=== PATIENT | male | born 1975 | race Asian ===

== ENCOUNTER 2016-11-26 15:05 | Inpatient (IN) | payer MEDICARE, OTHER, MEDICAID ==
[~2016-11-26] VITALS: Ht 167.6 cm; Wt 52.8 kg
[~2016-11-26 15:05] MED LIST: RISP1 PO
[2016-11-26 15:49] LABS: ANION GAP 9 mmol/L (8-16); CALCIUM, TOTAL 8.5 mg/dL (8.8-10.5); CARBON DIOXIDE 26 mmol/L (22-29); CHLORIDE 104 mmol/L (98-107); CREATININE 0.81 mg/dL (0.60-1.30); GLOMERULAR FILTR. RATE CALC > 60 mL/min (>60); POTASSIUM 3.6 mmol/L (3.5-5.1); SODIUM SERUM 139 mmol/L (136-145); UREA NITROGEN, BLOOD 8 mg/dL (7-18)
[2016-11-26 15:52] LABS: ALANINE AMINOTRANSFERASE 22 U/L (12-78); ALBUMIN 3.8 g/dL (3.4-5.0); ASPARTATE AMINOTRANSFERASE 13 U/L (15-37); BILIRUBIN,TOTAL 0.4 mg/dL (0.1-1.0); TOTAL PROTEIN, SERUM 7.3 g/dL (6.4-8.2)
[2016-11-26 15:58] LABS: BASOPHILS # (AUTO) 0.06 K/uL (0.00-0.20); BASOPHILS % (AUTO) 0.5 % (0.0-2.0); EOSINOPHILS # (AUTO) 0.08 K/uL (0.00-0.70); EOSINOPHILS % (AUTO) 0.69 % (1.0-6.0); HEMATOCRIT 36.8 % (41-53); HEMOGLOBIN 12.2 g/dL (13.5-17.5); MEAN CORPUSCULAR HEMOGLOBIN 30.6 pg (26.0-34.0); MEAN CORPUSCULAR HGB CONC 33.3 G/dL (31.0-37.0); MEAN CORPUSCULAR VOLUME 92 fL (80-100); MONOCYTES % (AUTO) 8.3 % (2.0-9.0); NEUTROPHILS # (AUTO) 8.5 K/uL (1.8-7.7); NEUTROPHILS % (AUTO) 73.5 % (40.0-70.0); PLATELET COUNT (AUTO) 163 K/uL (150-450); RED BLOOD CELL COUNT(AUTO) 3.99 MIL/uL (4.50-5.90); WHITE BLOOD COUNT (AUTO) 11.5 K/uL (4.5-11.0)
[2016-11-26] MEDS ORDERED: ZOLPIDEM TARTRATE 10 MG TABLET PO PRN (20:15)
[2016-11-27] MEDS: LORazepam 2 MG TABLET PO PRN (05:02)
[2016-11-27] MEDS: HALOPERIDOL 5 MG TABLET PO PRN (05:02)
[2016-11-27 17:21] VITALS: BP 109/66
[2016-11-27] MEDS ORDERED: INFLUENZA VIRUS VACCINE QVS 2016-17 (3YR+)/PF 60 MCG/0.5 ML SYRINGE IM ONE (19:00)
[2016-11-28 00:57] VITALS: BP 97/57
[2016-11-28] MEDS ORDERED: PNEUMOCOCCAL VACCINE POLYVALENT 0.5 ML VIAL [PPSV23] IM ONE (02:15)
[2016-11-28 08:10] VITALS: BP 114/69
[2016-11-28] MEDS ORDERED: BENZOCAINE/MENTHOL LOZENGE MM PRN (11:00)
[2016-11-28] MEDS ORDERED: BACITRACIN 28.4 GM OINTMENT TP PRN (11:00)
[2016-11-28] MEDS ORDERED: ACETAMINOPHEN 325 MG TABLET PO PRN (11:00)
[2016-11-28] MEDS ORDERED: PETROLATUM,WHITE 71 GM JELLY TP PRN (11:00)
[2016-11-28] MEDS ORDERED: GLUCAGON,HUMAN RECOMBINANT 1 MG VIAL IM PRN (11:00)
[2016-11-28] MEDS ORDERED: MAG HYDROX/AL HYDROX/SIMETH ES 30 ML SUSPENSION UDCUP PO PRN (11:00)
[2016-11-28] MEDS ORDERED: INSULIN ASPART 100 UNITS/ML SQ PRN (11:00)
[2016-11-28] MEDS ORDERED: MAGNESIUM HYDROXIDE SUSPENSION 30 ML UDCUP PO PRN (11:00)
[2016-11-28] MEDS ORDERED: ONDANSETRON HCL 4 MG TABLET PO PRN (11:00)
[2016-11-28] MEDS ORDERED: ALBUTEROL SULFATE HFA 90 MCG/PUFF 8 GM INHALER IH PRN (11:00)
[2016-11-28] MEDS ORDERED: CloNIDine HCL 0.1 MG TABLET PO PRN (11:00)
[2016-11-28] MEDS ORDERED: LOPERAMIDE HCL 2 MG CAPSULE PO PRN (11:00)
[2016-11-28 11:41] LABS: GLUCOSE,POINT OF CARE 119 MG/DL (70-110)
[2016-11-28 16:21] VITALS: BP 111/71
[2016-11-28 16:46] LABS: GLUCOSE,POINT OF CARE 90 MG/DL (70-110)
[2016-11-28 21:12] LABS: GLUCOSE,POINT OF CARE 94 MG/DL (70-110)
[2016-11-29 00:15] VITALS: BP 103/62
[2016-11-29 06:15] LABS: GLUCOSE,POINT OF CARE 100 MG/DL (70-110)
[2016-11-29 08:10] VITALS: BP 110/65
[2016-11-29 08:42] LABS: HEMOGLOBIN A1C 5.5 % (4.5-6.2)
[2016-11-29 09:23] LABS: CHOL/HDL RATIO 1.9 (4.2-7.3)
[2016-11-29 10:19] LABS: THYROID STIMULATING HORMONE 1.42 uIU/mL (0.36-3.74)
[2016-11-29 11:21] LABS: GLUCOSE,POINT OF CARE 90 MG/DL (70-110)
[2016-11-29] MEDS: LORazepam 2 MG TABLET PO PRN ×2 (11:23→17:12)
[2016-11-29 16:15] VITALS: BP 115/72
[2016-11-29] MEDS: RisperiDONE 2 MG TABLET PO SCH (16:15)
[2016-11-30 00:08] VITALS: BP 104/66
[2016-11-30] MEDS: RisperiDONE 2 MG TABLET PO SCH ×2 (08:19→16:28)
[2016-11-30 08:41] VITALS: BP 107/67
[2016-11-30 16:19] VITALS: BP 116/68
[2016-12-01 00:10] VITALS: BP 104/67
[2016-12-01 08:19] VITALS: BP 103/66
[2016-12-01] MEDS: RisperiDONE 2 MG TABLET PO SCH ×2 (09:15→17:00)
[2016-12-01] MEDS: LORazepam 2 MG TABLET PO PRN (09:20)
[2016-12-02] MEDS: CHOLECALCIFEROL (VIT D3) 1,000 UNITS TABLET PO SCH (09:00)
[2016-12-02] MEDS: RisperiDONE 2 MG TABLET PO SCH ×2 (09:00→17:00)
[2016-12-03 01:51] VITALS: BP 101/64
[2016-12-03 08:08] VITALS: BP 115/66
[2016-12-03] MEDS: CHOLECALCIFEROL (VIT D3) 1,000 UNITS TABLET PO SCH (08:48)
[2016-12-03] MEDS: RisperiDONE 2 MG TABLET PO SCH ×2 (08:48→16:44)
[2016-12-03 16:06] VITALS: BP 113/68
[2016-12-04 01:23] VITALS: BP 108/70
[2016-12-04 08:22] VITALS: BP 104/68
[2016-12-04] MEDS: RisperiDONE 2 MG TABLET PO SCH ×2 (08:51→16:34)
[2016-12-04] MEDS: CHOLECALCIFEROL (VIT D3) 1,000 UNITS TABLET PO SCH (08:52)
[2016-12-04] MEDS: LORazepam 2 MG TABLET PO PRN (08:52)
[2016-12-04 16:15] VITALS: BP 111/66
[2016-12-05 01:09] VITALS: BP 108/63
[2016-12-05 08:20] VITALS: BP 115/65
[2016-12-05] MEDS: RisperiDONE 2 MG TABLET PO SCH ×2 (08:49→16:44)
[2016-12-05] MEDS: CHOLECALCIFEROL (VIT D3) 1,000 UNITS TABLET PO SCH (08:49)
[2016-12-05] MEDS: LORazepam 2 MG TABLET PO PRN (08:50)
[2016-12-05] MEDS: NICOTINE 21 MG/24 HOUR PATCH TD SCH (12:03)
[2016-12-05 18:40] VITALS: BP 104/76
[2016-12-06 06:16] VITALS: BP 119/68
[2016-12-06] MEDS: RisperiDONE 2 MG TABLET PO SCH (08:33)
[2016-12-06] MEDS: CHOLECALCIFEROL (VIT D3) 1,000 UNITS TABLET PO SCH (08:33)
[2016-12-06] MEDS: NICOTINE 21 MG/24 HOUR PATCH TD SCH (08:33)
[2016-12-06] MEDS: LORazepam 2 MG TABLET PO PRN (08:39)
[2016-12-06 09:11] VITALS: BP 118/74
[2016-12-06] MEDS: RisperiDONE 3 MG TABLET PO SCH (16:22)
[2016-12-06 16:36] VITALS: BP 118/58
[2016-12-07 00:32] VITALS: BP 110/62
[2016-12-07 08:40] VITALS: BP 106/7
[2016-12-07] MEDS: NICOTINE 21 MG/24 HOUR PATCH TD SCH (09:01)
[2016-12-07] MEDS: RisperiDONE 3 MG TABLET PO SCH ×2 (09:01→16:04)
[2016-12-07] MEDS: CHOLECALCIFEROL (VIT D3) 1,000 UNITS TABLET PO SCH (09:01)
[2016-12-07] MEDS: LORazepam 2 MG TABLET PO PRN ×2 (09:07→16:05)
[2016-12-07 16:06] VITALS: BP 111/63
[2016-12-08 00:23] VITALS: BP 96/56
[2016-12-08] MEDS: CHOLECALCIFEROL (VIT D3) 1,000 UNITS TABLET PO SCH (08:24)
[2016-12-08] MEDS: RisperiDONE 3 MG TABLET PO SCH ×2 (08:24→16:24)
[2016-12-08] MEDS: NICOTINE 21 MG/24 HOUR PATCH TD SCH (08:25)
[2016-12-08] MEDS: LORazepam 2 MG TABLET PO PRN (08:28)
[2016-12-08 09:07] VITALS: BP 110/63
[2016-12-08 17:21] VITALS: BP 101/67
[2016-12-09 04:58] VITALS: BP 120/77
[2016-12-09 08:07] VITALS: BP 100/66
[2016-12-09] MEDS: NICOTINE 21 MG/24 HOUR PATCH TD SCH (09:00)
[2016-12-09] MEDS: CHOLECALCIFEROL (VIT D3) 1,000 UNITS TABLET PO SCH (09:33)
[2016-12-09] MEDS: RisperiDONE 3 MG TABLET PO SCH ×2 (09:33→16:16)
[2016-12-09 16:12] VITALS: BP 101/63
[2016-12-10 06:28] VITALS: BP_SYST 116; BP_SYST 135; BP_DIAS 72; BP_DIAS 88
[2016-12-10 09:18] VITALS: BP 116/75
[2016-12-10] MEDS: NICOTINE 21 MG/24 HOUR PATCH TD SCH (09:34)
[2016-12-10] MEDS: RisperiDONE 3 MG TABLET PO SCH ×2 (09:34→16:22)
[2016-12-10] MEDS: CHOLECALCIFEROL (VIT D3) 1,000 UNITS TABLET PO SCH (09:34)
[2016-12-10 16:20] VITALS: BP 102/64
[2016-12-11 00:23] VITALS: BP 106/64
[2016-12-11] MEDS: RisperiDONE 3 MG TABLET PO SCH (09:04)
[2016-12-11] MEDS: NICOTINE 21 MG/24 HOUR PATCH TD SCH (09:04)
[2016-12-11] MEDS: CHOLECALCIFEROL (VIT D3) 1,000 UNITS TABLET PO SCH (09:04)
[2016-12-11 09:16] VITALS: BP 105/61
[2016-12-11 16:02] VITALS: BP 143/89
[2016-12-11] MEDS: RisperiDONE 2 MG TABLET PO SCH (17:26)
[2016-12-12 01:57] VITALS: BP 119/66
[2016-12-12 08:21] VITALS: BP 118/76
[2016-12-12] MEDS: CHOLECALCIFEROL (VIT D3) 1,000 UNITS TABLET PO SCH (08:40)
[2016-12-12] MEDS: RisperiDONE 2 MG TABLET PO SCH ×2 (08:40→16:37)
[2016-12-12] MEDS: NICOTINE 21 MG/24 HOUR PATCH TD SCH (08:40)
[2016-12-12 16:10] VITALS: BP 114/56
[2016-12-13 04:07] VITALS: BP 103/60
[2016-12-13] MEDS: CHOLECALCIFEROL (VIT D3) 1,000 UNITS TABLET PO SCH (08:42)
[2016-12-13] MEDS: NICOTINE 21 MG/24 HOUR PATCH TD SCH (08:43)
[2016-12-13] MEDS: RisperiDONE 2 MG TABLET PO SCH ×2 (08:43→16:33)
[2016-12-13 08:53] VITALS: BP 102/68
[2016-12-13 16:10] VITALS: BP 101/63
[2016-12-14 05:30] VITALS: BP 118/76
[2016-12-14 08:46] VITALS: BP 114/54
[2016-12-14] MEDS: NICOTINE 21 MG/24 HOUR PATCH TD SCH (09:20)
[2016-12-14] MEDS: CHOLECALCIFEROL (VIT D3) 1,000 UNITS TABLET PO SCH (09:20)
[2016-12-14] MEDS: RisperiDONE 2 MG TABLET PO SCH ×2 (09:20→16:48)
[2016-12-14] MEDS: LORazepam 2 MG TABLET PO PRN (09:21)
[2016-12-14 16:11] VITALS: BP 111/70
[2016-12-15 02:56] VITALS: BP 104/75
[2016-12-15] MEDS: LORazepam 2 MG TABLET PO PRN (03:00)
[2016-12-15] MEDS: HALOPERIDOL 5 MG TABLET PO PRN (03:06)
[2016-12-15] MEDS: CHOLECALCIFEROL (VIT D3) 1,000 UNITS TABLET PO SCH (08:56)
[2016-12-15] MEDS: NICOTINE 21 MG/24 HOUR PATCH TD SCH (08:57)
[2016-12-15] MEDS: RisperiDONE 2 MG TABLET PO SCH ×2 (08:57→16:15)
[2016-12-15 09:18] VITALS: BP 104/60
[2016-12-15 16:06] VITALS: BP 102/65
[2016-12-16 06:06] VITALS: BP 100/66
[2016-12-16] MEDS: CHOLECALCIFEROL (VIT D3) 1,000 UNITS TABLET PO SCH (09:19)
[2016-12-16] MEDS: RisperiDONE 2 MG TABLET PO SCH ×2 (09:19→16:25)
[2016-12-16] MEDS: NICOTINE 21 MG/24 HOUR PATCH TD SCH (09:20)
[2016-12-16 09:26] VITALS: BP 119/67
[2016-12-16] MEDS: LORazepam 2 MG TABLET PO PRN ×2 (09:26→16:30)
[2016-12-16 16:14] VITALS: BP 117/68
[2016-12-17 04:26] VITALS: BP 114/60
[2016-12-17 08:54] VITALS: BP 116/65
[2016-12-17] MEDS: RisperiDONE 2 MG TABLET PO SCH ×2 (09:27→16:21)
[2016-12-17] MEDS: CHOLECALCIFEROL (VIT D3) 1,000 UNITS TABLET PO SCH (09:27)
[2016-12-17] MEDS: NICOTINE 21 MG/24 HOUR PATCH TD SCH (09:28)
[2016-12-17 16:00] VITALS: BP 113/69
[2016-12-18 02:55] VITALS: BP 117/63
[2016-12-18] MEDS: CHOLECALCIFEROL (VIT D3) 1,000 UNITS TABLET PO SCH (08:41)
[2016-12-18] MEDS: NICOTINE 21 MG/24 HOUR PATCH TD SCH (08:41)
[2016-12-18] MEDS: RisperiDONE 2 MG TABLET PO SCH ×2 (08:41→16:34)
[2016-12-18 09:04] VITALS: BP 122/76
[2016-12-18 16:00] VITALS: BP 109/60
[2016-12-19 00:46] VITALS: BP 110/62
[2016-12-19 08:02] LABS: BASOPHILS # (AUTO) 0.06 K/uL (0.00-0.20); BASOPHILS % (AUTO) 0.9 % (0.0-2.0); EOSINOPHILS # (AUTO) 0.15 K/uL (0.00-0.70); EOSINOPHILS % (AUTO) 1.95 % (1.0-6.0); HEMATOCRIT 44.5 % (41-53); HEMOGLOBIN 14.6 g/dL (13.5-17.5); LYMPHOCYTES # (AUTO) 2.2 K/uL (1.0-4.8); LYMPHOCYTES % (AUTO) 28.9 % (22.0-44.0); MEAN CORPUSCULAR HGB CONC 32.9 G/dL (31.0-37.0); MEAN CORPUSCULAR VOLUME 94 fL (80-100); MONOCYTES # (AUTO) 0.4 K/uL (0.1-1.0); MONOCYTES % (AUTO) 5.3 % (2.0-9.0); NEUTROPHILS # (AUTO) 4.8 K/uL (1.8-7.7); PLATELET COUNT (AUTO) 270 K/uL (150-450); RED BLOOD CELL COUNT(AUTO) 4.73 MIL/uL (4.50-5.90); RED CELL DISTRIBUTION WIDTH 13.3 % (11.5-14.5); WHITE BLOOD COUNT (AUTO) 7.6 K/uL (4.5-11.0)
[2016-12-19 08:16] VITALS: BP 101/60
[2016-12-19 08:39] LABS: ALANINE AMINOTRANSFERASE 19 U/L (12-78); ALBUMIN 3.5 g/dL (3.4-5.0); ANION GAP 9 mmol/L (8-16); ASPARTATE AMINOTRANSFERASE 13 U/L (15-37); BILIRUBIN,TOTAL 0.5 mg/dL (0.1-1.0); CALCIUM, TOTAL 8.7 mg/dL (8.8-10.5); CARBON DIOXIDE 27 mmol/L (22-29); CHLORIDE 105 mmol/L (98-107); CREATININE 0.82 mg/dL (0.60-1.30); GLOMERULAR FILTR. RATE CALC > 60 mL/min (>60); PHOSPHORUS 3.7 mg/dL (2.5-4.9); POTASSIUM 4.4 mmol/L (3.5-5.1); SODIUM SERUM 141 mmol/L (136-145); TOTAL PROTEIN, SERUM 7.1 g/dL (6.4-8.2); UREA NITROGEN, BLOOD 19 mg/dL (7-18)
[2016-12-19] MEDS: RisperiDONE 2 MG TABLET PO SCH ×2 (10:21→16:44)
[2016-12-19] MEDS: CHOLECALCIFEROL (VIT D3) 1,000 UNITS TABLET PO SCH (10:21)
[2016-12-19] MEDS: MULTIVITAMINS WITH MINERALS, THERAPEUTIC TABLET PO SCH (10:21)
[2016-12-19] MEDS: NICOTINE 21 MG/24 HOUR PATCH TD SCH (10:22)
[2016-12-19 16:03] VITALS: BP 106/77
[2016-12-20 00:45] VITALS: BP 110/71
[2016-12-20] MEDS: CHOLECALCIFEROL (VIT D3) 1,000 UNITS TABLET PO SCH (08:36)
[2016-12-20] MEDS: MULTIVITAMINS WITH MINERALS, THERAPEUTIC TABLET PO SCH (08:36)
[2016-12-20] MEDS: RisperiDONE 2 MG TABLET PO SCH ×2 (08:37→16:28)
[2016-12-20] MEDS: NICOTINE 21 MG/24 HOUR PATCH TD SCH (08:38)
[2016-12-20 08:57] VITALS: BP 114/66
[2016-12-20 16:04] VITALS: BP 102/62
[2016-12-21 01:41] VITALS: BP 123/89
[2016-12-21 08:09] VITALS: BP 100/61
[2016-12-21] MEDS: MULTIVITAMINS WITH MINERALS, THERAPEUTIC TABLET PO SCH (09:39)
[2016-12-21] MEDS: NICOTINE 21 MG/24 HOUR PATCH TD SCH (09:39)
[2016-12-21] MEDS: CHOLECALCIFEROL (VIT D3) 1,000 UNITS TABLET PO SCH (09:39)
[2016-12-21] MEDS: RisperiDONE 2 MG TABLET PO SCH ×2 (09:39→16:33)
[2016-12-21 16:41] VITALS: BP 95/62
[2016-12-22] VITALS (10 sets, daily range): BP systolic 99–123; BP diastolic 61–73
[2016-12-22] MEDS: RisperiDONE 2 MG TABLET PO SCH ×2 (09:17→17:00)
[2016-12-22] MEDS: MULTIVITAMINS WITH MINERALS, THERAPEUTIC TABLET PO SCH (09:17)
[2016-12-22] MEDS: NICOTINE 21 MG/24 HOUR PATCH TD SCH (09:17)
[2016-12-22] MEDS: CHOLECALCIFEROL (VIT D3) 1,000 UNITS TABLET PO SCH (09:17)
[2016-12-22 11:46] LABS: GLUCOSE,POINT OF CARE 95 MG/DL (70-110)
[2016-12-22] MEDS: IBUPROFEN 600 MG TABLET PO PRN ×2 (12:40→20:01)
[2016-12-23] VITALS (11 sets, daily range): BP systolic 100–119; BP diastolic 64–77
[2016-12-23] MEDS: IBUPROFEN 600 MG TABLET PO PRN (04:08)
[2016-12-23] MEDS: RisperiDONE 2 MG TABLET PO SCH ×2 (08:22→16:10)
[2016-12-23] MEDS: CHOLECALCIFEROL (VIT D3) 1,000 UNITS TABLET PO SCH (08:22)
[2016-12-23] MEDS: NICOTINE 21 MG/24 HOUR PATCH TD SCH (08:22)
[2016-12-23] MEDS: MULTIVITAMINS WITH MINERALS, THERAPEUTIC TABLET PO SCH (08:22)
[2016-12-24 00:15] VITALS: BP 107/62
[2016-12-24] MEDS: RisperiDONE 2 MG TABLET PO SCH ×2 (08:43→16:36)
[2016-12-24] MEDS: CHOLECALCIFEROL (VIT D3) 1,000 UNITS TABLET PO SCH (08:43)
[2016-12-24] MEDS: NICOTINE 21 MG/24 HOUR PATCH TD SCH (08:43)
[2016-12-24] MEDS: MULTIVITAMINS WITH MINERALS, THERAPEUTIC TABLET PO SCH (08:44)
[2016-12-24 09:02] VITALS: BP 107/67
[2016-12-24 16:10] VITALS: BP 102/60
[2016-12-25 01:56] VITALS: BP 109/63
[2016-12-25] MEDS: CHOLECALCIFEROL (VIT D3) 1,000 UNITS TABLET PO SCH (08:37)
[2016-12-25] MEDS: NICOTINE 21 MG/24 HOUR PATCH TD SCH (08:38)
[2016-12-25] MEDS: MULTIVITAMINS WITH MINERALS, THERAPEUTIC TABLET PO SCH (08:38)
[2016-12-25] MEDS: RisperiDONE 2 MG TABLET PO SCH ×2 (08:38→16:38)
[2016-12-25 09:20] VITALS: BP 101/58
[2016-12-25 16:26] VITALS: BP 124/72
[2016-12-26 01:07] VITALS: BP 101/62
[2016-12-26 08:09] VITALS: BP 110/63
[2016-12-26] MEDS: MULTIVITAMINS WITH MINERALS, THERAPEUTIC TABLET PO SCH (09:20)
[2016-12-26] MEDS: NICOTINE 21 MG/24 HOUR PATCH TD SCH (09:20)
[2016-12-26] MEDS: CHOLECALCIFEROL (VIT D3) 1,000 UNITS TABLET PO SCH (09:21)
[2016-12-26] MEDS: RisperiDONE 2 MG TABLET PO SCH ×2 (09:21→16:28)
[2016-12-26 16:08] VITALS: BP 103/63
[2016-12-27 00:06] VITALS: BP 104/66
[2016-12-27 08:31] VITALS: BP 101/69
[2016-12-27] MEDS: CHOLECALCIFEROL (VIT D3) 1,000 UNITS TABLET PO SCH (08:49)
[2016-12-27] MEDS: NICOTINE 21 MG/24 HOUR PATCH TD SCH (08:49)
[2016-12-27] MEDS: RisperiDONE 2 MG TABLET PO SCH ×2 (08:50→16:36)
[2016-12-27] MEDS: MULTIVITAMINS WITH MINERALS, THERAPEUTIC TABLET PO SCH (08:58)
[2016-12-27 16:09] VITALS: BP 106/67
[2016-12-27] MEDS: DIVALPROEX SODIUM 500 MG ER TABLET PO SCH (16:36)
[2016-12-28 06:17] VITALS: BP 100/69
[2016-12-28 08:08] VITALS: BP 104/64
[2016-12-28] MEDS: NICOTINE 21 MG/24 HOUR PATCH TD SCH ×2 (09:00→09:21)
[2016-12-28] MEDS: RisperiDONE 2 MG TABLET PO SCH ×2 (09:19→16:50)
[2016-12-28] MEDS: CHOLECALCIFEROL (VIT D3) 1,000 UNITS TABLET PO SCH (09:20)
[2016-12-28] MEDS: MULTIVITAMINS WITH MINERALS, THERAPEUTIC TABLET PO SCH (09:20)
[2016-12-28] MEDS: DIVALPROEX SODIUM 500 MG ER TABLET PO SCH ×2 (09:20→16:50)
[2016-12-28] MEDS ORDERED: PALIPERIDONE PALMITATE 234 MG/1.5 ML SYRINGE IM ONE (12:45)
[2016-12-28 16:21] VITALS: BP 102/69
[2016-12-29 06:00] VITALS: BP 107/64
[2016-12-29 08:07] VITALS: BP 90/61
[2016-12-29] MEDS: RisperiDONE 2 MG TABLET PO SCH ×2 (08:29→16:32)
[2016-12-29] MEDS: NICOTINE 21 MG/24 HOUR PATCH TD SCH (08:29)
[2016-12-29] MEDS: DIVALPROEX SODIUM 500 MG ER TABLET PO SCH ×2 (08:29→16:31)
[2016-12-29] MEDS: MULTIVITAMINS WITH MINERALS, THERAPEUTIC TABLET PO SCH (08:29)
[2016-12-29] MEDS: CHOLECALCIFEROL (VIT D3) 1,000 UNITS TABLET PO SCH (08:29)
[2016-12-29 16:07] VITALS: BP 102/60
[2016-12-30 05:51] VITALS: BP 107/67
[2016-12-30 08:36] VITALS: BP 106/62
[2016-12-30] MEDS: CHOLECALCIFEROL (VIT D3) 1,000 UNITS TABLET PO SCH (09:02)
[2016-12-30] MEDS: RisperiDONE 2 MG TABLET PO SCH ×2 (09:02→16:15)
[2016-12-30] MEDS: MULTIVITAMINS WITH MINERALS, THERAPEUTIC TABLET PO SCH (09:02)
[2016-12-30] MEDS: DIVALPROEX SODIUM 500 MG ER TABLET PO SCH ×2 (09:02→16:15)
[2016-12-30] MEDS: NICOTINE 21 MG/24 HOUR PATCH TD SCH (09:03)
[2016-12-30 16:15] VITALS: BP 98/60
[2016-12-31 00:59] VITALS: BP 102/64
[2016-12-31 08:50] VITALS: BP 118/71
[2016-12-31] MEDS: DIVALPROEX SODIUM 500 MG ER TABLET PO SCH ×2 (09:29→16:14)
[2016-12-31] MEDS: NICOTINE 21 MG/24 HOUR PATCH TD SCH (09:29)
[2016-12-31] MEDS: RisperiDONE 2 MG TABLET PO SCH ×2 (09:29→16:14)
[2016-12-31] MEDS: CHOLECALCIFEROL (VIT D3) 1,000 UNITS TABLET PO SCH (09:29)
[2016-12-31] MEDS: MULTIVITAMINS WITH MINERALS, THERAPEUTIC TABLET PO SCH (09:30)
[2016-12-31 16:14] VITALS: BP 118/76
[2017-01-01 05:49] VITALS: BP 101/61
[2017-01-01 08:09] VITALS: BP 109/68
[2017-01-01] MEDS ORDERED: PALIPERIDONE PALMITATE 156 MG/ML SYRINGE IM ONE (09:00)
[2017-01-01] MEDS: MULTIVITAMINS WITH MINERALS, THERAPEUTIC TABLET PO SCH (09:07)
[2017-01-01] MEDS: CHOLECALCIFEROL (VIT D3) 1,000 UNITS TABLET PO SCH (09:07)
[2017-01-01] MEDS: DIVALPROEX SODIUM 500 MG ER TABLET PO SCH ×2 (09:07→17:30)
[2017-01-01] MEDS: NICOTINE 21 MG/24 HOUR PATCH TD SCH (09:08)
[2017-01-01] MEDS: RisperiDONE 2 MG TABLET PO SCH ×2 (09:08→17:30)
[2017-01-01 16:06] VITALS: BP 103/63
[2017-01-02 06:29] VITALS: BP 108/69
[2017-01-02 08:14] VITALS: BP 103/53
[2017-01-02] MEDS: NICOTINE 21 MG/24 HOUR PATCH TD SCH (09:00)
[2017-01-02] MEDS: CHOLECALCIFEROL (VIT D3) 1,000 UNITS TABLET PO SCH (09:09)
[2017-01-02] MEDS: DIVALPROEX SODIUM 500 MG ER TABLET PO SCH ×2 (09:09→16:37)
[2017-01-02] MEDS: MULTIVITAMINS WITH MINERALS, THERAPEUTIC TABLET PO SCH (09:09)
[2017-01-02] MEDS: RisperiDONE 2 MG TABLET PO SCH (09:11)
[2017-01-02 16:10] VITALS: BP 106/67
[2017-01-03 00:09] VITALS: BP 104/62
[2017-01-03 01:13] VITALS: BP 104/62
[2017-01-03 08:20] VITALS: BP 102/66
[2017-01-03] MEDS: MULTIVITAMINS WITH MINERALS, THERAPEUTIC TABLET PO SCH (08:25)
[2017-01-03] MEDS: CHOLECALCIFEROL (VIT D3) 1,000 UNITS TABLET PO SCH (08:25)
[2017-01-03] MEDS: DIVALPROEX SODIUM 500 MG ER TABLET PO SCH ×2 (08:25→16:21)
[2017-01-03] MEDS: NICOTINE 21 MG/24 HOUR PATCH TD SCH (08:27)
[2017-01-03 16:03] VITALS: BP 101/63
[2017-01-04 00:43] VITALS: BP 101/69
[2017-01-04 08:45] VITALS: BP 99/66
[2017-01-04] MEDS: NICOTINE 21 MG/24 HOUR PATCH TD SCH (09:47)
[2017-01-04] MEDS: MULTIVITAMINS WITH MINERALS, THERAPEUTIC TABLET PO SCH (09:48)
[2017-01-04] MEDS: DIVALPROEX SODIUM 500 MG ER TABLET PO SCH ×2 (09:48→16:45)
[2017-01-04] MEDS: CHOLECALCIFEROL (VIT D3) 1,000 UNITS TABLET PO SCH (09:48)
[2017-01-04 16:12] VITALS: BP 114/71
[2017-01-05 00:09] VITALS: BP 102/66
[2017-01-05 08:32] VITALS: BP 104/63
[2017-01-05] MEDS: MULTIVITAMINS WITH MINERALS, THERAPEUTIC TABLET PO SCH (08:44)
[2017-01-05] MEDS: NICOTINE 21 MG/24 HOUR PATCH TD SCH (08:44)
[2017-01-05] MEDS: CHOLECALCIFEROL (VIT D3) 1,000 UNITS TABLET PO SCH (08:44)
[2017-01-05] MEDS: DIVALPROEX SODIUM 500 MG ER TABLET PO SCH (08:44)
[2017-01-05] MEDS ORDERED: DIVA500T52 PO (10:54)
[2017-01-05] MEDS ORDERED: PALI234D IM (10:54)
[2017-01-05] MEDS ORDERED: VITAD1000 PO (10:57)
[2017-01-05] MEDS ORDERED: MULT-1203 PO (10:57)
== END 2017-01-05 13:20 | disposition home or self-care (01) | DRG 885 ==
LOC: EMS 15:07 → B3A 11-27 12:19 → B2S 11-27 16:07 → B2X 12-03 18:00
DX: F20.0 Paranoid schizophrenia (principal); F33.2 Major depressive disorder, recurrent severe without psychotic features; S05.91XA Unspecified injury of right eye and orbit, initial encounter; Z68.1 Body mass index [BMI] 19.9 or less, adult; J44.9 Chronic obstructive pulmonary disease, unspecified; R73.9 Hyperglycemia, unspecified; E83.51 Hypocalcemia; I95.9 Hypotension, unspecified; D72.829 Elevated white blood cell count, unspecified; F17.210 Nicotine dependence, cigarettes, uncomplicated; F10.21 Alcohol dependence, in remission; E86.0 Dehydration; F15.10 Other stimulant abuse, uncomplicated; F41.9 Anxiety disorder, unspecified; R42 Dizziness and giddiness; F29 Unspecified psychosis not due to a substance or known physiological condition; R63.6 Underweight; Z79.899 Other long term (current) drug therapy; Z59.0 Homelessness; Z71.6 Tobacco abuse counseling; X58.XXXA Exposure to other specified factors, initial encounter; Z91.14 Patient's other noncompliance with medication regimen; Y93.89 Activity, other specified; Y92.89 Other specified places as the place of occurrence of the external cause; Y99.8 Other external cause status; Z28.21 Immunization not carried out because of patient refusal
CPT/HCPCS: 82306; 82962; 83036; 83735; 84100; 84443; 90471; 99285; A0429; G0480; Q0162

== ENCOUNTER 2016-12-22 13:48 | Emergency (ER) | payer OTHER, MEDICARE ==
[~2016-12-22] VITALS: Ht 172.7 cm; Wt 68.2 kg
[2016-12-22 15:22] LABS: BASOPHILS % (AUTO) 0.4 % (0.0-2.0); EOSINOPHILS % (AUTO) 0.3 % (1.0-6.0); HEMATOCRIT 46.5 % (41-53); HEMOGLOBIN 15.2 g/dL (13.5-17.5); LYMPHOCYTES # (AUTO) 1.4 K/uL (1.0-4.8); LYMPHOCYTES % (AUTO) 11.5 % (22.0-44.0); MEAN CORPUSCULAR HEMOGLOBIN 30.8 pg (26.0-34.0); MEAN CORPUSCULAR HGB CONC 32.8 G/dL (31.0-37.0); MEAN CORPUSCULAR VOLUME 94 fL (80-100); MONOCYTES # (AUTO) 0.4 K/uL (0.1-1.0); MONOCYTES % (AUTO) 3.2 % (2.0-9.0); NEUTROPHILS # (AUTO) 10.5 K/uL (1.8-7.7); NEUTROPHILS % (AUTO) 84.6 % (40.0-70.0); PLATELET COUNT (AUTO) 246 K/uL (150-450); RED BLOOD CELL COUNT(AUTO) 4.95 MIL/uL (4.50-5.90); RED CELL DISTRIBUTION WIDTH 13.2 % (11.5-14.5); WHITE BLOOD COUNT (AUTO) 12.4 K/uL (4.5-11.0)
[2016-12-22 15:35] LABS: PROTHROMBIN TIME 10.7 SEC (9.4-11.6)
[2016-12-22 15:48] LABS: ANION GAP 9 mmol/L (8-16); CARBON DIOXIDE 27 mmol/L (22-29); CHLORIDE 103 mmol/L (98-107); CREATININE 0.81 mg/dL (0.60-1.30); GLOMERULAR FILTR. RATE CALC > 60 mL/min (>60); POTASSIUM 3.6 mmol/L (3.5-5.1); SODIUM SERUM 139 mmol/L (136-145); UREA NITROGEN, BLOOD 16 mg/dL (7-18)
[2016-12-22 15:56] LABS: AMMONIA 20 umol/L (11-32)
[2016-12-22 15:59] LABS: TROPONIN I < 0.02 ng/mL (0.00-0.05)
[2016-12-22 16:12] LABS: ALANINE AMINOTRANSFERASE 26 U/L (12-78); ALBUMIN 3.8 g/dL (3.4-5.0); ASPARTATE AMINOTRANSFERASE 21 U/L (15-37); BILIRUBIN,TOTAL 0.7 mg/dL (0.1-1.0); CREATINE KINASE MB 0.6 ng/mL (0-5); CREATINE KINASE, TOTAL 80 U/L (39-308); TOTAL PROTEIN, SERUM 7.5 g/dL (6.4-8.2)
[2016-12-22 17:38] VITALS: BP 115/71
[2016-12-22 18:07] LABS: APPEARANCE,URINE CLEAR (CLEAR); GLUCOSE, URINE (UA) NEGATIVE (NEGATIVE); KETONES,URINE NEGATIVE (NEGATIVE); LEUKOCYTE ESTERASE ,URINE NEGATIVE (NEGATIVE); OCCULT BLOOD,URINE NEGATIVE (NEGATIVE); PROTEIN,URINE NEGATIVE (NEGATIVE)
[2016-12-22 18:12] LABS: ADD UA MICROSCOPIC NO
[2016-12-22] MEDS ORDERED: TraMADol HCL 50 MG TABLET PO ONE (18:30)
== END 2016-12-22 18:48 | disposition home or self-care (01) ==
LOC: EEVIPCON 13:55 → EMS 13:55
DX: S09.90XA Unspecified injury of head, initial encounter (principal); F17.210 Nicotine dependence, cigarettes, uncomplicated; F32.9 Major depressive disorder, single episode, unspecified; F20.9 Schizophrenia, unspecified; W01.0XXA Fall on same level from slipping, tripping and stumbling without subsequent striking against object, initial encounter; Y93.89 Activity, other specified; Y92.9 Unspecified place or not applicable; Y99.9 Unspecified external cause status
CPT/HCPCS: 70450; 70486; 87040; 93005; 99285

== ENCOUNTER 2017-09-13 09:12 | Inpatient (IN) | payer MEDICARE, MEDICAID ==
[~2017-09-13] VITALS: Ht 170.2 cm; Wt 59.1 kg
[~2017-09-13 09:12] MED LIST changes: +DIVA500T52 PO; +MULT-1203 PO; +PALI234D IM; -RISP1 PO; +VITAD1000 PO
[2017-09-13 10:19] LABS: BASOPHILS # (AUTO) 0.07 K/uL (0.00-0.20); BASOPHILS % (AUTO) 0.4 % (0.0-2.0); EOSINOPHILS % (AUTO) 0 % (1.0-6.0); HEMATOCRIT 48.1 % (41-53); HEMOGLOBIN 15.8 g/dL (13.5-17.5); LYMPHOCYTES # (AUTO) 1.1 K/uL (1.0-4.8); LYMPHOCYTES % (AUTO) 6.4 % (22.0-44.0); MEAN CORPUSCULAR HEMOGLOBIN 31.6 pg (26.0-34.0); MEAN CORPUSCULAR HGB CONC 32.8 G/dL (31.0-37.0); MEAN CORPUSCULAR VOLUME 96 fL (80-100); MONOCYTES # (AUTO) 1.2 K/uL (0.1-1.0); MONOCYTES % (AUTO) 6.6 % (2.0-9.0); NEUTROPHILS # (AUTO) 15.4 K/uL (1.8-7.7); PLATELET COUNT (AUTO) 245 K/uL (150-450); RED CELL DISTRIBUTION WIDTH 13.9 % (11.5-14.5); WHITE BLOOD COUNT (AUTO) 17.8 K/uL (4.5-11.0)
[2017-09-13 10:22] LABS: NEUTROPHILS % (AUTO) 86.6 % (40.0-70.0)
[2017-09-13 10:35] LABS: ANION GAP 18 mmol/L (8-16); CALCIUM, TOTAL 8.9 mg/dL (8.8-10.5); CARBON DIOXIDE 21 mmol/L (22-29); CHLORIDE 105 mmol/L (98-107); CREATININE 1.39 mg/dL (0.60-1.30); GLOMERULAR FILTR. RATE CALC 56 mL/min (>60); POTASSIUM 3.8 mmol/L (3.5-5.1); SODIUM SERUM 144 mmol/L (136-145); UREA NITROGEN, BLOOD 12 mg/dL (7-18)
[2017-09-13 10:41] LABS: ALANINE AMINOTRANSFERASE 35 U/L (12-78); ALBUMIN 4.1 g/dL (3.4-5.0); ASPARTATE AMINOTRANSFERASE 32 U/L (15-37); BILIRUBIN,TOTAL 0.4 mg/dL (0.1-1.0); TOTAL PROTEIN, SERUM 8.3 g/dL (6.4-8.2)
[2017-09-13] MEDS ORDERED: HALOPERIDOL 5 MG TABLET PO ONE (10:45)
[2017-09-13] MEDS ORDERED: LORazepam 2 MG TABLET PO ONE (10:45)
[2017-09-13 10:53] LABS: VALPROIC ACID 17 mcg/mL (50-100)
[2017-09-13] MEDS ORDERED: HALOPERIDOL 5 MG TABLET PO PRN (11:00)
[2017-09-13] MEDS ORDERED: LORazepam 2 MG TABLET PO PRN (11:00)
[2017-09-13] MEDS ORDERED: ZOLPIDEM TARTRATE 10 MG TABLET PO PRN (11:00)
[2017-09-13 12:05] LABS: CHOL/HDL RATIO 2.1 (4.2-7.3); THYROID STIMULATING HORMONE 1.17 uIU/mL (0.36-3.74)
[2017-09-13] MEDS ORDERED: INFLUENZA VIRUS VACCINE QVS 2017-18 (3YR+)/PF 60 MCG/0.5 ML SYRINGE IM ONE (14:00)
[2017-09-13] MEDS ORDERED: PNEUMOCOCCAL VACCINE POLYVALENT 0.5 ML VIAL [PPSV23] IM ONE (14:00)
[2017-09-13 14:01] VITALS: BP 119/67
[2017-09-13 16:17] VITALS: BP 107/68
[2017-09-13] MEDS: DIVALPROEX SODIUM 500 MG ER TABLET PO SCH (16:48)
[2017-09-13] MEDS: PALIPERIDONE 3 MG ER TABLET PO SCH (20:42)
[2017-09-14 02:25] VITALS: BP 99/68
[2017-09-14] MEDS ORDERED: ACETAMINOPHEN 325 MG TABLET PO PRN (08:15)
[2017-09-14] MEDS ORDERED: PETROLATUM,WHITE 71 GM JELLY TP PRN (08:15)
[2017-09-14] MEDS ORDERED: ALBUTEROL SULFATE HFA 90 MCG/PUFF 8 GM INHALER IH PRN (08:15)
[2017-09-14] MEDS ORDERED: BACITRACIN 28.4 GM OINTMENT TP PRN (08:15)
[2017-09-14] MEDS ORDERED: IBUPROFEN 600 MG TABLET PO PRN (08:15)
[2017-09-14] MEDS ORDERED: MAGNESIUM HYDROXIDE SUSPENSION 30 ML UDCUP PO PRN (08:15)
[2017-09-14] MEDS ORDERED: BENZOCAINE/MENTHOL LOZENGE MM PRN (08:15)
[2017-09-14] MEDS ORDERED: LOPERAMIDE HCL 2 MG CAPSULE PO PRN (08:15)
[2017-09-14] MEDS ORDERED: MAG HYDROX/AL HYDROX/SIMETH ES 30 ML SUSPENSION UDCUP PO PRN (08:15)
[2017-09-14] MEDS ORDERED: CloNIDine HCL 0.1 MG TABLET PO PRN (08:15)
[2017-09-14] MEDS ORDERED: ONDANSETRON HCL 4 MG TABLET PO PRN (08:15)
[2017-09-14 08:50] VITALS: BP 105/66
[2017-09-14] MEDS: DIVALPROEX SODIUM 500 MG ER TABLET PO SCH ×2 (08:52→16:34)
[2017-09-14] MEDS: PALIPERIDONE 3 MG ER TABLET PO SCH ×2 (08:52→20:44)
[2017-09-14 16:18] VITALS: BP 112/62
[2017-09-15 01:41] VITALS: BP 100/63
[2017-09-15 07:52] LABS: EOSINOPHILS % (AUTO) 2.3 % (1.0-6.0); HEMATOCRIT 41.3 % (41-53); HEMOGLOBIN 14.2 g/dL (13.5-17.5); LYMPHOCYTES # (AUTO) 2.3 K/uL (1.0-4.8); LYMPHOCYTES % (AUTO) 34.3 % (22.0-44.0); MEAN CORPUSCULAR HEMOGLOBIN 32.3 pg (26.0-34.0); MEAN CORPUSCULAR HGB CONC 34.4 G/dL (31.0-37.0); MEAN CORPUSCULAR VOLUME 94 fL (80-100); MONOCYTES # (AUTO) 0.5 K/uL (0.1-1.0); MONOCYTES % (AUTO) 7.9 % (2.0-9.0); NEUTROPHILS # (AUTO) 3.6 K/uL (1.8-7.7); NEUTROPHILS % (AUTO) 54.5 % (40.0-70.0); PLATELET COUNT (AUTO) 224 K/uL (150-450); RED CELL DISTRIBUTION WIDTH 13.5 % (11.5-14.5); WHITE BLOOD COUNT (AUTO) 6.7 K/uL (4.5-11.0)
[2017-09-15] MEDS: DIVALPROEX SODIUM 500 MG ER TABLET PO SCH ×2 (08:49→16:24)
[2017-09-15] MEDS: PALIPERIDONE 3 MG ER TABLET PO SCH ×2 (08:49→20:32)
[2017-09-15 09:00] VITALS: BP 96/70
[2017-09-15 09:22] LABS: ANION GAP 10 mmol/L (8-16); CALCIUM, TOTAL 8.4 mg/dL (8.8-10.5); CARBON DIOXIDE 25 mmol/L (22-29); CHLORIDE 106 mmol/L (98-107); CREATININE 0.81 mg/dL (0.60-1.30); GLOMERULAR FILTR. RATE CALC > 60 mL/min (>60); POTASSIUM 4.2 mmol/L (3.5-5.1); SODIUM SERUM 141 mmol/L (136-145); UREA NITROGEN, BLOOD 14 mg/dL (7-18)
[2017-09-15 16:13] VITALS: BP 90/65
[2017-09-16 06:27] VITALS: BP 101/63
[2017-09-16 08:10] VITALS: BP 100/65
[2017-09-16] MEDS: PALIPERIDONE 3 MG ER TABLET PO SCH ×2 (08:31→20:15)
[2017-09-16] MEDS: DIVALPROEX SODIUM 500 MG ER TABLET PO SCH ×2 (08:31→16:07)
[2017-09-16 16:15] VITALS: BP 106/73
[2017-09-17 06:10] VITALS: BP 104/62
[2017-09-17 08:31] VITALS: BP 98/60
[2017-09-17] MEDS: PALIPERIDONE 3 MG ER TABLET PO SCH ×2 (08:53→21:06)
[2017-09-17] MEDS: DIVALPROEX SODIUM 500 MG ER TABLET PO SCH ×2 (08:53→16:37)
[2017-09-17 16:09] VITALS: BP 92/68
[2017-09-18 05:43] VITALS: BP 101/68
[2017-09-18 08:16] VITALS: BP 100/63
[2017-09-18] MEDS: DIVALPROEX SODIUM 500 MG ER TABLET PO SCH ×2 (09:00→17:13)
[2017-09-18] MEDS: PALIPERIDONE 3 MG ER TABLET PO SCH ×2 (09:00→20:19)
[2017-09-18 16:12] VITALS: BP 96/61
[2017-09-19 06:14] VITALS: BP 100/61
[2017-09-19 08:10] VITALS: BP 101/59
[2017-09-19] MEDS: DIVALPROEX SODIUM 500 MG ER TABLET PO SCH ×2 (08:51→16:47)
[2017-09-19] MEDS: PALIPERIDONE 3 MG ER TABLET PO SCH ×2 (08:51→20:31)
[2017-09-19 17:10] VITALS: BP 113/66
[2017-09-20 05:26] VITALS: BP 100/65
[2017-09-20 08:15] VITALS: BP 105/65
[2017-09-20] MEDS: DIVALPROEX SODIUM 500 MG ER TABLET PO SCH (08:36)
[2017-09-20] MEDS: PALIPERIDONE 3 MG ER TABLET PO SCH (08:36)
[2017-09-20] MEDS ORDERED: PALI3 PO (09:13)
== END 2017-09-20 13:25 | disposition home or self-care (01) | DRG 885 ==
LOC: EMS 09:15 → B2X 11:18
PROVIDERS: ATTEND Psychiatry & Neurology Child & Adolescent Psychiatry
DX: F20.0 Paranoid schizophrenia (principal); N17.9 Acute kidney failure, unspecified; Z91.14 Patient's other noncompliance with medication regimen; Z59.0 Homelessness; D72.829 Elevated white blood cell count, unspecified; Z28.21 Immunization not carried out because of patient refusal; F17.200 Nicotine dependence, unspecified, uncomplicated; F32.9 Major depressive disorder, single episode, unspecified; J44.9 Chronic obstructive pulmonary disease, unspecified; F15.90 Other stimulant use, unspecified, uncomplicated; Z71.6 Tobacco abuse counseling; Z56.0 Unemployment, unspecified; F10.21 Alcohol dependence, in remission; Z71.51 Drug abuse counseling and surveillance of drug abuser
CPT/HCPCS: 84439; 84443; 99285; G0480

== ENCOUNTER 2019-03-20 13:57 | Inpatient (IN) | payer MEDICARE, MEDICAID ==
[~2019-03-20] VITALS: Ht 170.2 cm; Wt 53.6 kg
[~2019-03-20 13:57] MED LIST changes: -MULT-1203 PO; -PALI234D IM; +PALI3 PO; -VITAD1000 PO
[2019-03-20 14:23] VITALS: BP 135/85
[2019-03-20] MEDS ORDERED: LORazepam 2 MG TABLET PO PRN (14:30)
[2019-03-20] MEDS ORDERED: HALOPERIDOL 5 MG TABLET PO PRN (14:30)
[2019-03-20] MEDS ORDERED: ZOLPIDEM TARTRATE 10 MG TABLET PO PRN (14:30)
[2019-03-20 15:59] VITALS: BP 132/87
[2019-03-20 16:00] VITALS: BP 132/87
[2019-03-20] MEDS ORDERED: PNEUMOCOCCAL VACCINE POLYVALENT 0.5 ML VIAL [PPSV23] IM ONE (16:15)
[2019-03-20] MEDS: PALIPERIDONE 3 MG ER TABLET PO SCH (20:49)
[2019-03-21 05:24] VITALS: BP 100/61
[2019-03-21 08:29] VITALS: BP 98/60
[2019-03-21 09:05] LABS: AMPHET/METH SCREEN,URINE NEGATIVE (NEGATIVE); BARBITURATE SCREEN, URINE NEGATIVE (NEGATIVE); BENZODIAZEPINES SCREEN,URINE NEGATIVE (NEGATIVE); CANNABINOID SCREEN,URINE NEGATIVE (NEGATIVE); COCAINE SCREEN,URINE NEGATIVE (NEGATIVE); METHADONE SCREEN, URINE NEGATIVE (NEGATIVE); OPIATE SCREEN,URINE NEGATIVE (NEGATIVE)
[2019-03-21 09:07] LABS: PHENCYCLIDINE SCREEN,URINE NEGATIVE (NEGATIVE)
[2019-03-21 10:15] LABS: APPEARANCE,URINE TURBID (CLEAR); GLUCOSE, URINE (UA) NEGATIVE (NEGATIVE); KETONES,URINE 40 mg/dL (NEGATIVE); LEUKOCYTE ESTERASE ,URINE NEGATIVE (NEGATIVE); NITRATE,URINE NEGATIVE (NEGATIVE); OCCULT BLOOD,URINE NEGATIVE (NEGATIVE); PROTEIN,URINE TRACE (NEGATIVE)
[2019-03-21 10:25] LABS: BILIRUBIN,URINE PRELIM. POSITIVE (NEGATIVE)
[2019-03-21 10:42] LABS: AMORPHOUS SEDIMENT,UR Moderate /LPF (None Seen); BACTERIA,URINE Moderate /HPF (None Seen); SQUAMOUS EPITHELIAL CELL,UR Few /LPF (None Seen); WBC,URINE 0-2 /HPF (0-5)
[2019-03-21] MEDS: DIVALPROEX SODIUM 500 MG ER TABLET PO SCH (17:06)
[2019-03-21 18:15] VITALS: BP 96/60
[2019-03-21] MEDS ORDERED: IBUPROFEN 600 MG TABLET PO PRN (19:45)
[2019-03-21] MEDS ORDERED: ALBUTEROL SULFATE HFA 90 MCG/PUFF 8 GM INHALER IH PRN (19:45)
[2019-03-21] MEDS ORDERED: ACETAMINOPHEN 325 MG TABLET PO PRN (19:45)
[2019-03-21] MEDS ORDERED: PETROLATUM,WHITE 28 GM JELLY TP PRN (19:45)
[2019-03-21] MEDS ORDERED: BACITRACIN 28.4 GM OINTMENT TP PRN (19:45)
[2019-03-21] MEDS ORDERED: MAG HYDROX/AL HYDROX/SIMETH ES 30 ML SUSPENSION UDCUP PO PRN (19:45)
[2019-03-21] MEDS ORDERED: ONDANSETRON HCL 4 MG TABLET PO PRN (19:45)
[2019-03-21] MEDS ORDERED: CloNIDine HCL 0.1 MG TABLET PO PRN (19:45)
[2019-03-21] MEDS ORDERED: BENZOCAINE/MENTHOL LOZENGE MM PRN (19:45)
[2019-03-21] MEDS ORDERED: LOPERAMIDE HCL 2 MG CAPSULE PO PRN (19:45)
[2019-03-21] MEDS ORDERED: MAGNESIUM HYDROXIDE SUSPENSION 30 ML UDCUP PO PRN (19:45)
[2019-03-21] MEDS: PALIPERIDONE 3 MG ER TABLET PO SCH (20:13)
[2019-03-22 06:28] VITALS: BP 117/67
[2019-03-22 08:25] LABS: BASOPHILS % (AUTO) 1.4 % (0.0-2.0); EOSINOPHILS % (AUTO) 2.5 % (1.0-6.0); HEMATOCRIT 48.4 % (41-53); HEMOGLOBIN 16.1 g/dL (13.5-17.5); LYMPHOCYTES # (AUTO) 1.7 K/uL (1.0-4.8); LYMPHOCYTES % (AUTO) 35.6 % (22.0-44.0); MEAN CORPUSCULAR HEMOGLOBIN 31.4 pg (26.0-34.0); MEAN CORPUSCULAR HGB CONC 33.4 G/dL (31.0-37.0); MEAN CORPUSCULAR VOLUME 94 fL (80-100); MONOCYTES # (AUTO) 0.2 K/uL (0.1-1.0); MONOCYTES % (AUTO) 5.2 % (2.0-9.0); NEUTROPHILS # (AUTO) 2.6 K/uL (1.8-7.7); NEUTROPHILS % (AUTO) 55.3 % (40.0-70.0); PLATELET COUNT (AUTO) 266 K/uL (150-450); RED BLOOD CELL COUNT(AUTO) 5.14 MIL/uL (4.50-5.90); RED CELL DISTRIBUTION WIDTH 12.9 % (11.5-14.5)
[2019-03-22] MEDS: OMEPRAZOLE 20 MG CAPSULE PO SCH (08:26)
[2019-03-22] MEDS: DOCUSATE SODIUM 100 MG CAPSULE PO SCH (08:26)
[2019-03-22] MEDS: DIVALPROEX SODIUM 500 MG ER TABLET PO SCH ×2 (08:26→16:24)
[2019-03-22 08:37] VITALS: BP 91/56
[2019-03-22 08:56] LABS: HEMOGLOBIN A1C 5.7 % (4.5-6.2)
[2019-03-22 09:12] LABS: ALANINE AMINOTRANSFERASE 22 U/L (12-78); ALBUMIN 3.6 g/dL (3.4-5.0); ALKALINE PHOSPHATASE 74 U/L (46-116); ANION GAP 10 mmol/L (8-16); ASPARTATE AMINOTRANSFERASE 13 U/L (15-37); BILIRUBIN,TOTAL 0.6 mg/dL (0.1-1.0); CALCIUM, TOTAL 8.7 mg/dL (8.8-10.5); CARBON DIOXIDE 25 mmol/L (22-29); CHLORIDE 108 mmol/L (98-107); CHOL/HDL RATIO 3.2 (4.2-7.3); CHOLESTEROL 145 mg/dL (131-200); CREATININE 0.89 mg/dL (0.60-1.30); GLOMERULAR FILTR. RATE CALC > 60 mL/min (>60); GLUCOSE,RANDOM 99 mg/dL (70-110); HDL CHOLESTEROL 46 mg/dL (40-60); LDL CHOL (CALC.) 77 mg/dL (0-130); SODIUM SERUM 143 mmol/L (136-145); TOTAL PROTEIN, SERUM 7.1 g/dL (6.4-8.2); TRIGLYCERIDES 112 mg/dL (15-150); UREA NITROGEN, BLOOD 13 mg/dL (7-18)
[2019-03-22 10:14] VITALS: BP 124/71
[2019-03-22 16:24] VITALS: BP 108/72
[2019-03-22] MEDS: PALIPERIDONE 3 MG ER TABLET PO SCH (20:17)
[2019-03-23 07:09] VITALS: BP 99/54
[2019-03-23 08:14] VITALS: BP 101/61
[2019-03-23] MEDS: OMEPRAZOLE 20 MG CAPSULE PO SCH (08:22)
[2019-03-23] MEDS: DIVALPROEX SODIUM 500 MG ER TABLET PO SCH ×2 (08:22→17:19)
[2019-03-23] MEDS: DOCUSATE SODIUM 100 MG CAPSULE PO SCH (08:22)
[2019-03-23 16:14] VITALS: BP 99/59
[2019-03-23] MEDS: PALIPERIDONE 3 MG ER TABLET PO SCH (20:09)
[2019-03-24 00:43] VITALS: BP 102/68
[2019-03-24 08:00] VITALS: BP 100/60
[2019-03-24] MEDS: DIVALPROEX SODIUM 500 MG ER TABLET PO SCH ×2 (09:35→16:37)
[2019-03-24] MEDS: DOCUSATE SODIUM 100 MG CAPSULE PO SCH (09:35)
[2019-03-24] MEDS: OMEPRAZOLE 20 MG CAPSULE PO SCH (09:35)
[2019-03-24 16:20] VITALS: BP 106/64
[2019-03-24] MEDS: PALIPERIDONE 3 MG ER TABLET PO SCH (20:43)
[2019-03-25 06:19] VITALS: BP 104/65
[2019-03-25] MEDS: DIVALPROEX SODIUM 500 MG ER TABLET PO SCH ×2 (08:20→16:49)
[2019-03-25] MEDS: OMEPRAZOLE 20 MG CAPSULE PO SCH (08:20)
[2019-03-25] MEDS: DOCUSATE SODIUM 100 MG CAPSULE PO SCH (08:20)
[2019-03-25 09:01] VITALS: BP 100/62
[2019-03-25 16:53] VITALS: BP 93/60
[2019-03-25] MEDS: PALIPERIDONE 3 MG ER TABLET PO SCH (20:30)
[2019-03-26 00:03] VITALS: BP 106/60
[2019-03-26] MEDS: DIVALPROEX SODIUM 500 MG ER TABLET PO SCH ×2 (08:34→16:32)
[2019-03-26] MEDS: DOCUSATE SODIUM 100 MG CAPSULE PO SCH (08:34)
[2019-03-26] MEDS: OMEPRAZOLE 20 MG CAPSULE PO SCH (08:34)
[2019-03-26 11:43] VITALS: BP 101/61
[2019-03-26 16:00] VITALS: BP 109/83
[2019-03-26] MEDS: PALIPERIDONE 3 MG ER TABLET PO SCH (20:22)
[2019-03-27 04:06] VITALS: BP 104/63
[2019-03-27] MEDS: DIVALPROEX SODIUM 500 MG ER TABLET PO SCH ×2 (08:19→16:31)
[2019-03-27] MEDS: DOCUSATE SODIUM 100 MG CAPSULE PO SCH (08:19)
[2019-03-27] MEDS: OMEPRAZOLE 20 MG CAPSULE PO SCH (08:19)
[2019-03-27 08:33] VITALS: BP 100/65
[2019-03-27 16:20] VITALS: BP 100/60
[2019-03-27] MEDS: PALIPERIDONE 3 MG ER TABLET PO SCH (20:32)
[2019-03-28 03:18] VITALS: BP 105/66
[2019-03-28] MEDS: DOCUSATE SODIUM 100 MG CAPSULE PO SCH (08:10)
[2019-03-28] MEDS: OMEPRAZOLE 20 MG CAPSULE PO SCH (08:10)
[2019-03-28] MEDS: DIVALPROEX SODIUM 500 MG ER TABLET PO SCH (08:10)
[2019-03-28 09:19] VITALS: BP 100/68
[2019-03-28] MEDS ORDERED: PALI3 PO (10:50)
== END 2019-03-28 11:30 | disposition home or self-care (01) | DRG 885 ==
LOC: B2X 14:31
PROVIDERS: ADMIT Psychiatry & Neurology Psychiatry; ATTEND Psychiatry & Neurology Psychiatry
DX: F20.0 Paranoid schizophrenia (principal); Z28.21 Immunization not carried out because of patient refusal; J44.9 Chronic obstructive pulmonary disease, unspecified; Z59.0 Homelessness; F17.200 Nicotine dependence, unspecified, uncomplicated; F15.10 Other stimulant abuse, uncomplicated
CPT/HCPCS: 80307; 83036; 84439; 84443; 87086